=== PATIENT | male | born 1955 | race Caucasian/White ===

== ENCOUNTER 2016-08-29 14:05 | Emergency (ER) | payer SELFPAY ==
[~2016-08-29] VITALS: Ht 185.4 cm; Wt 84.0 kg
[2016-08-29 14:20] VITALS: BP 119/62; PULSE 58; RESP 17; TEMP 97.8; O2SAT 98
[2016-08-29] MEDS ORDERED: SODIUM CHLOR 0.9% 1000 ML INJ 1,000 ML IV SCH (14:41)
[2016-08-29] MEDS ORDERED: SODIUM CHLORIDE 0.9% FLUSH 10 ML FLUSH IVF PRN (14:45)
[2016-08-29 15:18] LABS: AUTOMATED NEUTROPHIL # 6.1 TH/MM3 (1.8-7.7); BASOPHIL # 0.1 TH/MM3 (0-0.2); BASOPHIL % 0.6 % (0.0-2.0); EOSINOPHIL # 0.2 TH/MM3 (0-0.4); EOSINOPHIL % 2.2 % (0.0-4.0); HEMATOCRIT 40.1 % (39.0-51.0); HEMO FLAGS DIFF FINAL; LYMPH % 24.2 % (9.0-44.0); LYMPHOCYTE # 2.4 TH/MM3 (1.0-4.8); MEAN CELL VOLUME 87.3 FL (80.0-100.0); MEAN CORPUSCULAR HEMOGLOBIN 29.1 PG (27.0-34.0); MEAN CORPUSCULAR HGB CONC 33.4 % (32.0-36.0); MONO % 11.3 % (0.0-8.0); NEUT % 61.7 % (16.0-70.0); PLATELET COUNT 181 TH/MM3 (150-450); RED CELL DISTRIBUTION WIDTH 12.8 % (11.6-17.2); WHITE BLOOD COUNT 9.9 TH/MM3 (4.0-11.0)
--- NOTE | 2016-08-29 15:20 | PD ---
HPI Chief Complaint: Fall Time Seen by Provider: 14:40 Travel History International Travel<30 days: No Contact w/Intl Traveler<30days: No History of Present Illness HPI 61-year-old male with PMH of PAD s/p RLE bypass, DMT2 presents to the ED via [facility] for evaluation after chronic falls. The patient states that he attempted to walk home from a friends last night but had such severe cramping in his legs that he fell to the ground. States that this cramping in the legs continued today which caused his roommate to call EMS. He also complains of dysuria and white penile discharge x 1 month. Onset after unprotected sex with a female. On presentation he denies fevers, chills, headache, dizziness, vision changes, CP, palpitations, abdominal pain, N/V, back pain, numbness, weakness, tingling of the extremities. He denies drinking alcohol or illicit drug use. Takes no daily medications. NKDA. PFSH Past Medical History Diabetes: Yes (PT STATES DOES NOT USE MED) Patient Takes Glucophage: No Diminished Hearing: No Medical other: Yes (DM) Integumentary: Yes (SQUAMOUS CELL CA HX) Tetanus Vaccination: < 5 Years Influenza Vaccination: No Past Surgical History Other Surgery: Yes (NOSE SX , SQUAMOUS CELL CANCER FOREHEAD SX ) Social History Alcohol Use: Yes (OCASSIONALLY) Tobacco Use: Yes (1 PACK PER WEEK) Substance Use: No Allergies-Medications (Allergen,Severity, Reaction): Coded Allergies: No Known Allergies (Unverified , 08/29/16) Reported Meds & Prescriptions Reported Meds & Active Scripts Active Bactrim DS (Sulfamethoxazole-Trimethoprim) 800-160 Mg Tab 1 Tab PO BID Review of Systems Except as stated in HPI: all other systems reviewed are Neg Physical Exam Narrative GENERAL: Well-nourished, well-developed white male in no acute distress. SKIN: Focused skin assessment warm/dry. HEAD: Normocephalic. Well healed scar in the midline of the forehead. No signs of infection EYES: No scleral icterus. No injection or drainage. PERRLA. EOMI. NECK: Supple, trachea midline. No JVD or lymphadenopathy. CARDIOVASCULAR: Regular rate and rhythm without murmurs, gallops, or rubs. 2+DP and radial pulses bilaterally RESPIRATORY: Breath sounds clear and equal bilaterally. No accessory muscle use. GASTROINTESTINAL: Abdomen soft, nondistended. +TTP in the LUQ. Active bowel sounds GENITOURINARY: Uncircumcised. Testes descended bilaterally without evidence of rotation. No lesions or erythema. No urethral discharge. MUSCULOSKELETAL: No cyanosis, or edema. Ropy varicosities of the RLE. Patient demonstrates a slow gait. Sensation intact to light touch distally. Cap refill ~ 2sec. NEUROLOGICAL: Awake and alert. Cranial nerves II through XII intact. Motor and sensory grossly within normal limits. Five out of 5 muscle strength in all muscle groups. Slightly slurred speech. No pronator drift. BACK: Nontender without obvious deformity. +left sided CVA tenderness. Data Data Last Documented VS Vital Signs Date Time Temp Pulse Resp B/P Pulse Ox O2 Delivery O2 Flow Rate FiO2 08/29/16 16:00 59 16 120/77 98 Room Air 08/29/16 14:20 97.8 Orders Complete Blood Count With Diff (08/29/16 14:41) Comprehensive Metabolic Panel (08/29/16 14:41) Lipase (08/29/16 14:41) Urinalysis - C+S If Indicated (08/29/16 14:41) Iv Access Insert/Monitor (08/29/16 14:41) Sodium Chlor 0.9% 1000 Ml Inj (Ns 1000 M (08/29/16 14:41) Alcohol (Ethanol) (08/29/16 14:41) Drug Screen, Random Urine (08/29/16 14:41) Gc And Chlamydia Pcr (08/29/16 14:41) Sodium Chloride 0.9% Flush (Ns Flush) (08/29/16 14:45) Ct Brain W/O Iv Contrast(Rout) (08/29/16 14:41) Chest, Single Ap (08/29/16 16:26) Urine Culture (08/29/16 16:00) Labs Laboratory Tests Test 08/29/16 08/29/16 14:40 16:00 White Blood Count 9.9 TH/MM3 Red Blood Count 4.60 MIL/MM3 Hemoglobin 13.4 GM/DL Hematocrit 40.1 % Mean Corpuscular Volume 87.3 FL Mean Corpuscular Hemoglobin 29.1 PG Mean Corpuscular Hemoglobin 33.4 % Concent Red Cell Distribution Width 12.8 % Platelet Count 181 TH/MM3 Mean Platelet Volume 8.2 FL Neutrophils (%) (Auto) 61.7 % Lymphocytes (%) (Auto) 24.2 % Monocytes (%) (Auto) 11.3 % Eosinophils (%) (Auto) 2.2 % Basophils (%) (Auto) 0.6 % Neutrophils # (Auto) 6.1 TH/MM3 Lymphocytes # (Auto) 2.4 TH/MM3 Monocytes # (Auto) 1.1 TH/MM3 Eosinophils # (Auto) 0.2 TH/MM3 Basophils # (Auto) 0.1 TH/MM3 CBC Comment DIFF FINAL Differential Comment Sodium Level 137 MEQ/L Potassium Level 3.9 MEQ/L Chloride Level 104 MEQ/L Carbon Dioxide Level 25.4 MEQ/L Anion Gap 8 MEQ/L Blood Urea Nitrogen 10 MG/DL Creatinine 0.95 MG/DL Estimat Glomerular Filtration 80 ML/MIN Rate Random Glucose 303 MG/DL Calcium Level 8.5 MG/DL Total Bilirubin 0.9 MG/DL Aspartate Amino Transf 18 U/L (AST/SGOT) Alanine Aminotransferase 23 U/L (ALT/SGPT) Alkaline Phosphatase 131 U/L Total Protein 6.9 GM/DL Albumin 3.2 GM/DL Lipase 116 U/L Ethyl Alcohol Level LESS THAN 3 MG/DL Urine Color LIGHT-YELLOW Urine Turbidity CLEAR Urine pH 5.0 Urine Specific [place] 1.037 Urine Protein NEG mg/dL Urine Glucose (UA) 1000 mg/dL Urine Ketones 40 mg/dL Urine Occult Blood NEG Urine Nitrite NEG Urine Bilirubin NEG Urine Urobilinogen LESS THAN 2.0 MG/DL Urine Leukocyte Esterase TRACE Urine RBC 1 /hpf Urine WBC 13 /hpf Urine Bacteria MOD /hpf Urine Mucus FEW /lpf Microscopic Urinalysis Comment CULTURE INDICATED MDM Medical Decision Making Medical Screen Exam Complete: Yes Emergency Medical Condition: Yes Differential Diagnosis PAD versus diabetic neuropathy versus electrolyte abnormality versus alcohol intoxication versus STI versus UTI versus less likely ICH versus other Narrative Course 61-year-old male with PMH of PAD s/p RLE bypass, DMT2 presents to the ED via [facility] for evaluation after chronic falls. The patient states that he attempted to walk home from a friends last night but had such severe cramping in his legs that he fell to the ground. States that this cramping in the legs continued today which caused his roommate to call EMS. He also complains of dysuria and white penile discharge x 1 month. Onset after unprotected sex with a female. On presentation he denies fevers, chills, headache, dizziness, vision changes, CP, palpitations, abdominal pain, N/V, back pain, numbness, weakness, tingling of the extremities. He denies drinking alcohol or illicit drug use. Takes no daily medications. NKDA. Vitals reviewed. Physical exam reveals a nontoxic appearing white male in no acute distress. There are no PE varicosities in the right lower extremity. Patient demonstrates a slow gait. No focal neural defects. Exam otherwise unremarkable. IV was established. Patient was administered a liter of normal saline. CBC: Unremarkable CMP: Glucose 303 UA: Trace leukocyte esterase, 13 WBCs, moderate bacteria. Culture pending EtOH: <3 Chest x-ray: No active disease per radiology read. CT of the head: Normal per radiology read. I discussed the results of the workup with the patient. I suspect his symptoms are due to either diabetic neuropathy or claudication. He is prescribed Bactrim DS twice a day 3 days for his urinary tract infection. He is instructed to follow-up with his primary care provider and vascular surgeon for further evaluation of this leg pain. He indicated understanding of the instructions and is agreeable to the care plan. He is stable and discharged home. Diagnosis Primary Impression: Urinary tract infection Qualified Code: N39.0 - Urinary tract infection without hematuria, site unspecified Additional Impression: Pain in both lower legs Referrals: Primary Care Physician Vascular Surgeon Patient Instructions: Diabetic Peripheral Neuropathy (ED), General Instructions , Peripheral Artery Disease (ED), Urinary Tract Infection in Men (ED) Additional Instructions: Rest, hydrate. Take all antibiotics as prescribed, even if urinary symptoms resolve. Follow-up with the primary care provider and vascular surgeon as discussed. Return to the ED for any urgent or emergent medical condition. Med/Other Pt SpecificInfo: Prescription(s) given Scripts Sulfamethoxazole-Trimethoprim (Bactrim DS)800-160 Mg Tab1 Tab PO BID #6 TAB Ref 0 Prov:Radha Hannah MD 08/29/16 Disposition: 01 DISCHARGE HOME Condition: Stable Aster Ogden August 29, 2016 15:20
[2016-08-29 15:43] LABS: ALT (GPT) 23 U/L (12-78); ANION GAP 8 MEQ/L (5-15); AST (GOT) 18 U/L (15-37); BICARBONATE 25.4 MEQ/L (21.0-32.0); BLOOD UREA NITROGEN 10 MG/DL (7-18); CHLORIDE 104 MEQ/L (98-107); GLOMERULAR FILTRATION RATE 80 ML/MIN (>89); POTASSIUM 3.9 MEQ/L (3.5-5.1); SODIUM (NA) 137 MEQ/L (136-145)
[2016-08-29 15:44] LABS: ALKALINE PHOSPHATASE 131 U/L (45-117); TOTAL BILIRUBIN ADULT 0.9 MG/DL (0.2-1.0)
[2016-08-29 16:00] VITALS: BP 120/77; PULSE 59; RESP 16; O2SAT 98
--- NOTE | 2016-08-29 16:03 | RADRPT ---
EXAM DATE/TIME: 08/29/2016 15:23 [facility] COMPARISON: No previous studies available for comparison. INDICATIONS : Multiple falls today. RADIATION DOSE: 41.72 CTDIvol (mGy) MEDICAL HISTORY : skin cancer SURGICAL HISTORY : None. ENCOUNTER: Initial ACUITY: 1 day PAIN SCALE: 5/10 LOCATION: Bilateral head TECHNIQUE: Multiple contiguous axial images were obtained of the head. Using automated exposure control and adj ustment of the mA and/or kV according to patient size, radiation dose was kept as low as reasonably a chievable to obtain optimal diagnostic quality images. FINDINGS: CEREBRUM: The ventricles are normal for age. No evidence of midline shift, mass lesion, hemorrhage or acute in farction. No extra-axial fluid collections are seen. POSTERIOR FOSSA: The cerebellum and brainstem are intact. The 4th ventricle is midline. The cerebellopontine angle i s unremarkable. EXTRACRANIAL: The visualized portion of the orbits is intact. SKULL: The calvaria is intact. No evidence of skull fracture. CONCLUSION: Normal examination for a patient of this age. Tomas Bautista MD on August 29, 2016 at 15:56 Board Certified Radiologist. This report was verified electronically.
[2016-08-29 16:24] LABS: BACTERIA, URINE MOD /hpf; BLOOD, URINE NEG (NEG); COMMENT (UR) CULTURE INDICATED; CULTURE IF INDICATED CULTURE INDICATED; GLUCOSE,URINE 1000 mg/dL (NEG); KETONE, URINE 40 mg/dL (NEG); MUCUS URINE FEW /lpf (OCC); NITRITE,URINE NEG (NEG); URINE COLOR LIGHT-YELLOW (YELLW/STRAW)
[2016-08-29] MEDS ORDERED: BACT800T5 PO (17:24)
--- NOTE | 2016-08-29 18:21 | RADRPT ---
EXAM DATE/TIME: 08/29/2016 16:37 [facility] COMPARISON: No previous studies available for comparison. INDICATIONS : Left chest and rib pain after falling. MEDICAL HISTORY : None. SURGICAL HISTORY : None. ENCOUNTER: Initial ACUITY: 1 day PAIN SCORE: 9/10 LOCATION: Bilateral chest FINDINGS: A single view of the chest demonstrates the lungs to be symmetrically aerated without evidence of mas s, infiltrate or effusion. The cardiomediastinal contours are unremarkable. Osseous structures are intact. CONCLUSION: 1. No active disease. Hypertrophic changes around the distal right clavicle. Tomas Bautista MD on August 29, 2016 at 18:14 Board Certified Radiologist. This report was verified electronically.
[2016-08-29 19:59] LABS: CHLAMYDIA PCR NOT DETECTED (NOT DETECT); NEISSERIA PCR NOT DETECTED (NOT DETECT)
[2016-08-30 00:40] LABS: AMPHETAMINE, URINE NEG (NEG); BARBITURATES, URINE NEG (NEG); COCAINE, URINE POS (NEG)
== END 2016-08-29 20:59 | disposition home or self-care (01) ==
LOC: NEPC 14:05
DX: N39.0 Urinary tract infection, site not specified (principal); B95.1 Streptococcus, group B, as the cause of diseases classified elsewhere; M79.604 Pain in right leg; M79.605 Pain in left leg; E11.9 Type 2 diabetes mellitus without complications
CPT/HCPCS: 70450; 71010; 80053; 80307; 81001; 83690; 85025; 86403; 87086; 87491; 87591; 96360; 99284; J7030